=== PATIENT | male | born 1975 | race Caucasian/White ===

== ENCOUNTER 2021-11-01 06:55 | Outpatient (CLI) | payer BC ==
[~2021-11-01] VITALS: Ht 179.1 cm; Wt 93.6 kg
[2021-11-01] VITALS (14 sets, daily range): BP systolic 123–159; BP diastolic 65–91
[2021-11-01 07:44] LABS: CALCIUM 8.7 mg/dL (8.5-10.1); CREATININE 0.7 mg/dL (0.7-1.3); POTASSIUM 4.6 mmol/L (3.5-5.1)
[2021-11-01] MEDS ORDERED: LIDOCAINE 1% Multi-Dose 20 ML VIAL. ONE (07:48)
[2021-11-01 07:52] LABS: PROTHROMBIN TIME PATIENT 12.8 SEC (11.7-14.0)
[2021-11-01 07:58] LABS: HEMATOCRIT 47.4 % (39.0-53.0); HEMOGLOBIN 16.2 g/dL (13.0-17.5); RED BLOOD COUNT 5.15 x10^6/uL (4.30-5.70); RED CELL DISTRIBUTION WIDTH 13.4 % (11.5-14.5); WHITE BLOOD COUNT 9.3 x10^3/uL (4.0-11.0)
[2021-11-01] MEDS ORDERED: IODIXANOL 320 200 ML in NS 200 ML IART ONE (08:00)
[2021-11-01] MEDS ORDERED: MIDAZOLAM HCL/PF 5 MG/5 ML VIAL. ONE (08:07)
[2021-11-01] MEDS ORDERED: HEPARIN for IV BOLUS 10,000 UNIT/10 ML VIAL. ONE (08:07)
[2021-11-01] MEDS ORDERED: fentaNYL PF VIAL 250 MCG/5 ML VIAL ONE (08:07)
[2021-11-01] MEDS ORDERED: VERAPAMIL 5 MG/2 ML VIAL. ONE (08:10)
[2021-11-01] MEDS ORDERED: NITROGLYCERIN 200 MCG/2 ML SYRINGE FOR CATH/VASC LAB. ONE ×2 (08:10→09:19)
[2021-11-01] MEDS ORDERED: HEPARIN for IV BOLUS 10,000 UNIT/10 ML VIAL. IART ONE (08:15)
[2021-11-01] MEDS ORDERED: fentaNYL PF VIAL 250 MCG/5 ML VIAL IV ONE (08:15)
[2021-11-01] MEDS ORDERED: NITROGLYCERIN 200 MCG/2 ML SYRINGE FOR CATH/VASC LAB. IART ONE (08:15)
[2021-11-01] MEDS ORDERED: LIDOCAINE 1% PF 2 ML VIAL. INJ ONE (08:15)
[2021-11-01] MEDS ORDERED: VERAPAMIL 5 MG/2 ML VIAL. IART ONE (08:15)
[2021-11-01] MEDS ORDERED: MIDAZOLAM HCL/PF 5 MG/5 ML VIAL. IV ONE (08:15)
[2021-11-01] MEDS ORDERED: DEXT10CA4 PO (08:24)
[2021-11-01] MEDS ORDERED: DEXT10TA2 PO (08:24)
[2021-11-01] MEDS ORDERED: ROSU40TA22 PO (08:24)
[2021-11-01] MEDS ORDERED: ASPI325T8 PO (08:24)
[2021-11-01] MEDS ORDERED: LISI20TA18 PO (08:24)
[2021-11-01] MEDS ORDERED: LIDOCAINE 1% PF 2 ML VIAL. ONE (08:29)
[2021-11-01] MEDS ORDERED: diphenhydrAMINE 50 MG/ML VIAL ONE (09:18)
[2021-11-01] MEDS ORDERED: diphenhydrAMINE 50 MG/ML VIAL IVP ONE (09:30)
[2021-11-01] MEDS ORDERED: MIDAZOLAM HCL/PF 2 MG/2 ML VIAL. ONE (09:44)
[2021-11-01] MEDS ORDERED: fentaNYL PF VIAL 100 MCG/2 ML VIAL ONE (09:44)
[2021-11-01] MEDS ORDERED: IODIXANOL 320 MG/ML 100 ML VIAL. ONE (10:35)
[2021-11-01] MEDS ORDERED: CLOPIDOGREL BISULFATE 75 MG TABLET ONE (10:52)
--- NOTE | 2021-11-01 10:58 | PDOC ---
MODERATE SEDATION ASSESSMENT RISKS/ALTERNATIVES Risks/Alternatives Risks and alternatives of this type of sedation and procedure discussed with: RISK/ALTERNATIVES: Patient H & P ON CHART H & P H & P on chart and reviewed for co-morbid conditions and appropriate labs. H&P ON CHART: Yes STATUS PREG STATUS ASSESSED: N/A MEDS/ALLERGIES REVIEWED Meds/Allergies Reviewed Medications and Allergies including time and route of recently administered narcotics and sedatives. MEDS/ALLERGIES REVIEWED: Yes ASA RATING ASA RATING: II AIRWAY ASSESSMENT Airway Assessment Airway patency, oral function limitations, presence of caps, crowns, dentures, partials, and ability to extend neck assessed. AIRWAY ASSESSMENT: Yes MALLAMPATI SCORE MALLAMPATI SCORE: II PRE-SEDATION ASSESSMENT PRE-SEDATION ASSESSMENT: Yes COLUMBA BOLANOS MD Nov 01, 2021 10:58
[2021-11-01] MEDS ORDERED: fentaNYL PF VIAL 100 MCG/2 ML VIAL IVP ONE (11:00)
[2021-11-01] MEDS ORDERED: IV 1/2 NORMAL SALINE 1,000 ML IV SCH (11:00)
[2021-11-01] MEDS ORDERED: ACETAMINOPHEN 325 MG TABLET. PO PRN (11:00)
[2021-11-01] MEDS ORDERED: CLOPIDOGREL BISULFATE 75 MG TABLET PO ONE (11:00)
--- NOTE | 2021-11-01 11:28 | CARD ---
MR#: [id number] Date of Study: 11/01/2021 Ordering Physician: COLUMBA BOLANOS, Referring Physician: COLUMBA BOLANOS, Tech: Landy La APPROVED REPORT Patient StatusOUT-PATIENT Dentistry Professor: Landy La Procedure(s) performed: 1. Aortogram with bilateral lower extremity runoff via right transradial ángel florez 2. Successful complex FIRE RANGER/stent placement to chronic total occlusion of the right superficial femora l artery via right anterior tibial (pedal) access. fl time: 35.5 min dose: 167 gycm2 contrast: 178 ml moderate sedation: 150 mins INDICATION FOR PROCEDURE The indication(s) include : Peripheral artery disease with claudication. CASE TECHNIQUE After explaining the risks, benefits, and alternative options, informed consent was obtained from the patient. IV conscious sedation was used throughout procedure with appropriate monitoring and was per formed in the presence of a registered nurse who was an independent trained observer other than the laura adams performing the procedure. During this case, Fluoroscopy and low osmolar contrast were used f or imaging. Specimen(s) Removed: No Estimated Blood loss: 20 cc's. During the procedure heparin was u sed for anticoagulation. PROCEDURE NARRATIVE After explaining the risk, benefits and alternative options, informed consent was obtained from patie nt. Patient was brought to the cardiac Area Development Manager and his right wrist was prepped and draped in the us ual fashion after confirming a positive modified Janusz's test. Arterial access was obtained in the r ight radial artery and a 6 [place]ian sheath was inserted. A 4F R2P PV multivurve catheter was then adva nced under fluoroscopic guidance and with the tip position in the distal descending aorta, aortoiliac angiography was performed. The catheter was advanced into the left external iliac artery and select tara left lower extremity angiography was performed. Subsequently, the catheter was withdrawn, advanc ed into the right external iliac artery and selective right lower extremity angiography was performed . The following findings were noted: FINDINGS 1. No significant stenosis involving the distal descending aorta 2. No significant stenosis involving bilateral common and external iliac arteries 3. No significant stenosis involving bilateral common femoral arteries 4. The superficial femoral arteries bilaterally showed long, flush and chronic total occlusions in t he proximal and mid segments with distal reconstitution via collaterals. The profunda femoris arteri es bilaterally did not show any significant stenosis. 5. The popliteal arteries bilaterally did not show any significant stenosis. 6. There is good three-vessel runoff below the knee bilaterally. INTERVENTION Since patient had flush occlusion of bilateral superficial femoral arteries, a decision was made to i ntervene on the right SFA via right pedal access and stage left SFA intervention in 2 to 3 weeks. Th e right foot and leg were then prepped and draped in the usual fashion. Vascular ultrasound was used to obtain arterial access the right anterior tibial artery and a 6 Liberian sheath was inserted. With the help of backup support from 4 Liberian angled glide catheter, the long chronic total occlusion was crossed successfully with a 0.035 inch Glidewire. Contrast injections were performed to confirm int raluminal location. Attempts to advance 5.0 balloon across the lesion in the proximal to mid segment were unsuccessful. A decision was made to change to a 0.018 inch system. A straight Navicross cath eter was then advanced over the Glidewire, which was then exchanged to a 0.018 inch command guidewire . The long lesion was then dilated with a 5.0 x 200 mm Terumo Crosstella balloon. Since there was diss ection in the proximal portion of the lesion and significant recoil in the distal portion of the lesi on, we decided to treat these areas with stent placement. The proximal segment of the SFA was treate d successfully with a 6.0 x 80 mm Terumo Misago self-expanding stent in the distal recording segment was treated with a 6.0 x 40 mm Terumo Misago self-expanding stent. These were then postdilated with a 5.0 x 60 mm Terumo Metacross balloon. Follow-up angiography showed resolution of the lesion with g ood distal flow. Hemostasis in the right wrist and the right leg were obtained using TR band. Patie nt tolerated the procedure well. There were no immediate complications. Conclusion 1. Severe bilateral lower extremity peripheral artery disease with 100% long and chronic total occlu sions involving the superficial femoral arteries bilaterally 2. Successful complex FIRE RANGER/stents placement to the right superficial femoral artery Recommendations 1. Aspirin 81 mg daily 2. Plavix 75 mg daily for 4 to 6 weeks 3. Plan for staged FIRE RANGER to the left SFA via left pedal access in 2 to 4 weeks 4. Vascular risk factor modification including smoking cessation Signed by : Columba Bolanos, Electronically Approved : 11/01/2021 11:28:12
[2021-11-01] MEDS ORDERED: CLOP75TA PO (12:43)
--- NOTE | 2021-11-01 15:18 | NUR ---
pt A&O x4. having some pain in rt wrist and ankle access sites. both TR bands removed. cleaned sites. dressed with gauze and opsite. no bleeding or swelling noted. armboard reapplied to rt hand/wrist area. d/c instructions given. questions answered. out to vehicle per w/c
[2021-11-02] MEDS ORDERED: CLOPIDOGREL BISULFATE 75 MG TABLET PO SCH (08:00)
[2021-11-02] MEDS ORDERED: ASPIRIN ENTERIC COATED 81 MG TABLET.DR. PO SCH (08:00)
== END 2021-11-01 15:25 | disposition home or self-care (01) ==
LOC: CCL 06:55
PROVIDERS: ATTEND Internal Medicine Cardiovascular Disease
DX: I73.9 Peripheral vascular disease, unspecified (principal); I10 Essential (primary) hypertension; E78.00 Pure hypercholesterolemia, unspecified; F17.210 Nicotine dependence, cigarettes, uncomplicated; Z79.82 Long term (current) use of aspirin; Z79.899 Other long term (current) drug therapy; Z98.890 Other specified postprocedural states; Z72.89 Other problems related to lifestyle; Z88.1 Allergy status to other antibiotic agents; Z88.8 Allergy status to other drugs, medicaments and biological substances
CPT/HCPCS: 36415; 37226; 75625; 75716; 76937; 80048; 85027; 85610; 99152; 99153; C1725; C1769; C1876; C1887; C1894; J1200; J1644; J2250; J3010; J3490; J7050; Q9967; J7030

== ENCOUNTER 2021-11-26 07:02 | Outpatient (CLI) | payer BC ==
[~2021-11-26] VITALS: Ht 180.3 cm; Wt 100.0 kg
[2021-11-26] VITALS (12 sets, daily range): BP systolic 104–146; BP diastolic 61–90
[~2021-11-26 07:02] MED LIST: ASPI325T8 PO; CLOP75TA PO; DEXT10CA4 PO; DEXT10TA2 PO; LISI20TA18 PO; PERFLUTREN PROTEIN-A MICROSPHR 0.22 MG/ML 3 ML VIAL. IV ONE; ROSU40TA22 PO
[2021-11-26 07:49] LABS: HEMATOCRIT 48.2 % (39.0-53.0); HEMOGLOBIN 16.1 g/dL (13.0-17.5); RED BLOOD COUNT 5.3 x10^6/uL (4.30-5.70); RED CELL DISTRIBUTION WIDTH 12.9 % (11.5-14.5); WHITE BLOOD COUNT 11.8 x10^3/uL (4.0-11.0)
[2021-11-26] MEDS ORDERED: LIDOCAINE 1% Multi-Dose 20 ML VIAL. ONE (07:49)
[2021-11-26 07:56] LABS: CALCIUM 9.2 mg/dL (8.5-10.1); CREATININE 0.9 mg/dL (0.7-1.3); GFR 90.8; POTASSIUM 4.7 mmol/L (3.5-5.1)
[2021-11-26] MEDS ORDERED: fentaNYL PF VIAL 100 MCG/2 ML VIAL ONE (08:18)
[2021-11-26] MEDS ORDERED: MIDAZOLAM HCL/PF 5 MG/5 ML VIAL. ONE (08:18)
[2021-11-26] MEDS ORDERED: fentaNYL PF VIAL 250 MCG/5 ML VIAL ONE (08:24)
[2021-11-26] MEDS ORDERED: diphenhydrAMINE 50 MG/ML VIAL ONE (08:25)
[2021-11-26] MEDS ORDERED: HEPARIN for IV BOLUS 10,000 UNIT/10 ML VIAL. ONE (08:27)
[2021-11-26] MEDS ORDERED: NITROGLYCERIN 200 MCG/2 ML SYRINGE FOR CATH/VASC LAB. ONE ×2 (08:29→09:31)
[2021-11-26] MEDS ORDERED: VERAPAMIL 5 MG/2 ML VIAL. ONE (08:30)
[2021-11-26] MEDS ORDERED: IODIXANOL 320 200 ML in NS 200 ML IART ONE (08:30)
[2021-11-26] MEDS ORDERED: diphenhydrAMINE 50 MG/ML VIAL IVP ONE (08:45)
[2021-11-26] MEDS ORDERED: HEPARIN for IV BOLUS 10,000 UNIT/10 ML VIAL. IV ONE (09:45)
[2021-11-26] MEDS ORDERED: fentaNYL PF VIAL 250 MCG/5 ML VIAL IV ONE (09:45)
[2021-11-26] MEDS ORDERED: HEPARIN for IV BOLUS 10,000 UNIT/10 ML VIAL. IART ONE (09:45)
[2021-11-26] MEDS ORDERED: IODIXANOL 320 MG/ML 100 ML VIAL. IART ONE (09:45)
[2021-11-26] MEDS ORDERED: LIDOCAINE 1% Multi-Dose 20 ML VIAL. INJ ONE (09:45)
[2021-11-26] MEDS ORDERED: MIDAZOLAM HCL/PF 5 MG/5 ML VIAL. IV ONE (09:45)
[2021-11-26] MEDS ORDERED: NITROGLYCERIN 200 MCG/2 ML SYRINGE FOR CATH/VASC LAB. IART ONE ×2 (09:45)
[2021-11-26] MEDS ORDERED: VERAPAMIL 5 MG/2 ML VIAL. IART ONE (09:45)
[2021-11-26] MEDS ORDERED: CONTRAST GIVEN. MC PRN (09:45)
--- NOTE | 2021-11-26 10:18 | PDOC ---
MODERATE SEDATION ASSESSMENT RISKS/ALTERNATIVES Risks/Alternatives Risks and alternatives of this type of sedation and procedure discussed with: RISK/ALTERNATIVES: Patient H & P ON CHART H & P H & P on chart and reviewed for co-morbid conditions and appropriate labs. H&P ON CHART: Yes STATUS PREG STATUS ASSESSED: N/A MEDS/ALLERGIES REVIEWED Meds/Allergies Reviewed Medications and Allergies including time and route of recently administered narcotics and sedatives. MEDS/ALLERGIES REVIEWED: Yes ASA RATING ASA RATING: II AIRWAY ASSESSMENT Airway Assessment Airway patency, oral function limitations, presence of caps, crowns, dentures, partials, and ability to extend neck assessed. AIRWAY ASSESSMENT: Yes MALLAMPATI SCORE MALLAMPATI SCORE: II PRE-SEDATION ASSESSMENT PRE-SEDATION ASSESSMENT: Yes COLUMBA BOLANOS MD Nov 26, 2021 10:18
[2021-11-26] MEDS ORDERED: IV 1/2 NORMAL SALINE 1,000 ML IV SCH (10:30)
[2021-11-26] MEDS ORDERED: ACETAMINOPHEN 325 MG TABLET. PO PRN (10:30)
--- NOTE | 2021-11-26 10:38 | CARD ---
MR#: [id number] Date of Study: 11/26/2021 Ordering Physician: COLUMBA BOLANOS, Referring Physician: COLUMBA BOLANOS Tech: Christianne Lr RT(R) APPROVED REPORT Patient StatusCLI Foundry Hand: Christianne Lr RT(R) Procedure(s) performed: Successful complex PIPE LINE GAUGER/stent placement to long and chronic total occlusion in volving left superficial femoral artery via left anterior tibial access. MODERATE SEDATION TIME: 108 MINUTES FLUORO TIME: 18.7 MIN DOSE: 63.8 GYCM2 CONTRAST: 104CC VISI INDICATION FOR PROCEDURE The indication(s) include : 46-year-old male with history of peripheral artery disease with severe cl audication symptoms recently underwent PIPE LINE GAUGER/stent placement to SLEEVE SETTER SAFETY STITCH of right superficial femoral artery via right AT access. He presented today for staged PIPE LINE GAUGER to the chronic total occlusion involving the left superficial femoral artery via left anterior tibial access.. CASE TECHNIQUE After explaining the risks, benefits, and alternative options, informed consent was obtained from the patient. IV conscious sedation was used throughout procedure with appropriate monitoring and was per formed in the presence of a registered nurse who was an independent trained observer other than the laura adams performing the procedure. During this case, Fluoroscopy and low osmolar contrast were used f or imaging. Specimen(s) Removed: No Estimated Blood loss: 15 cc's. PROCEDURE NARRATIVE After explaining the risk, benefits and alternative options, informed consent was obtained from gracee nt. Patient was brought to the cardiac Chemical Dependency Therapist and his right wrist and left lower leg/foot were pre pped and draped in the usual fashion. Vascular ultrasound guidance was used to obtain right radial a rterial access and 6 Cook Islander sheath was inserted. Under vascular ultrasound guidance again, arterial access was obtained in the left anterior tibial artery and 6 [place] Islander sheath inserted. A 6 [place] Islander R2 P PV multicurve catheter was then advanced under fluoroscopy guidance through the right radial arteria l sheath and the tip was positioned in the left external iliac artery. Selective left lower extremit y angiography confirmed the previously described 100% long, flush, chronic total occlusion involving the left superficial femoral artery with reconstitution of the distal segment via collaterals. There was three-vessel runoff distally. A 4 [place] Islander angled glide catheter was then advanced over a 0.035 inch Glidewire through the sheath in the left anterior tibial artery. After several attempts, the long chronic total occlusion was crosse d with a Glidewire. Contrast injections were performed through the angled glide catheter to confirm intraluminal position. The long lesion was then dilated with multiple inflations using 5.5 x 150 mm Freeman Thatcher balloon. Follow-up angiography showed small area of dissection at the distal Of the le kandice. This was successfully treated with a 5.5 x 80 mm Freeman Supera self-expanding stent. Follow-u p angiography showed resolution of the lesion with good results and good distal flow. Patient tolera sincere the procedure well. Hemostasis in the right wrist and left leg were obtained using TR band. Pat ient tolerated the procedure well. There were no immediate complications. Conclusion Successful PIPE LINE GAUGER/stent placement to long chronic total occlusion involving the left superficial femoral artery via left anterior tibial access. Recommendations Vascular risk factor modification including complete smoking cessation and regular exercise regimen Signed by : Columba Bolanos, Electronically Approved : 11/26/2021 10:37:59
--- NOTE | 2021-11-26 13:52 | NUR ---
Instructions provided on site care, sedation. Patient verbalized understanding. present. PIV removed. VS stable. All belongings, including cell phone, wallet; taken with patient. driving patient home. No questions at time of d/c.
== END 2021-11-26 13:40 | disposition home or self-care (01) ==
LOC: CCL 07:02
PROVIDERS: ATTEND Internal Medicine Cardiovascular Disease
DX: I73.9 Peripheral vascular disease, unspecified (principal); I10 Essential (primary) hypertension; E78.00 Pure hypercholesterolemia, unspecified; F17.210 Nicotine dependence, cigarettes, uncomplicated; Z79.82 Long term (current) use of aspirin; Z79.899 Other long term (current) drug therapy; Z98.890 Other specified postprocedural states; Z88.1 Allergy status to other antibiotic agents; Z88.8 Allergy status to other drugs, medicaments and biological substances; Z72.89 Other problems related to lifestyle
CPT/HCPCS: 36415; 37226; 75710; 76937; 80048; 85027; 85610; 99152; 99153; C1725; C1769; C1876; C1887; C1894; J1200; J1644; J2250; J3010; J3490; J7050; Q9967; J7030

== ENCOUNTER → 2022-02-03 | Outpatient (CLI) | payer BC ==
[2021-11-26 13:30] VITALS: BP 132/76
[~2022-02-03] MED LIST changes: -PERFLUTREN PROTEIN-A MICROSPHR 0.22 MG/ML 3 ML VIAL. IV ONE
--- NOTE | 2022-02-03 18:04 | CARD ---
MR#: [id number] Date of Study: 02/03/2022 Ordering Physician: COLUMBA BOLANOS, Referring Physician: Roseline VALLE: Chuck Mendes [facility] APPROVED REPORT EXAM: Two-dimensional and M-mode echocardiogram with Doppler and color Doppler. Other Information Quality : FairHR: 98bpm Rhythm : NSR INDICATION Hypertension/HCVD RISK FACTORS Hypertension Obesity Smoking Peripheral vascular disease 2D DIMENSIONS Left Atrium(2D)3.8 (1.6-4.0cm)IVSd1.2 (0.7-1.1cm) Aortic Root(2D)3.0 (2.0-3.7cm)LVDd4.4 (3.9-5.9cm) PWd1.2 (0.7-1.1cm)LVDs2.3 (2.5-4.0cm) FS (%) 47.5 %SV69.7 ml Aortic Valve AoV Peak Cheo.154.0cm/sAoV VTI26.9cm AO Peak GR.9.5mmHgLVOT Peak Cheo.116.8cm/s LVOT VTI 20.02cmAO Mean GR.5mmHg Mitral Valve MV E Uhdeypqb91.2cm/sMV DECEL [id number] MV A Cjmrlito18.2cm/sMV [id number] E/A Ratio0.7MVA (PHT)1.84cm2 TDI E/Lateral E'6.2E/Medial E'5.8 Pulmonary Valve PV Peak Bblookke756.0cm/sPV Peak Grad.7mmHg Tricuspid Valve TR P. Rmxvpwsh607yw/sTR Peak Gr.19mmHg Pulmonary Vein S1 Gcsajbsw85.8cm/sD2 Ggukcamy54.5cm/s LEFT VENTRICLE The left ventricle is normal size. There is borderline concentric left ventricular hypertrophy. The l eft ventricular systolic function is normal. Left ventricular ejection fraction is 55 to 60%. There i s normal LV segmental wall motion. Transmitral Doppler flow pattern is Grade I-abnormal relaxation pa ttern. No left ventricle thrombus noted on this study. There is no ventricular septal defect visualiz ed. There is no left ventricular aneurysm. There is no mass noted in the left ventricle. RIGHT VENTRICLE The right ventricle is normal size. There is normal right ventricular wall thickness. The right ventr icular systolic function is normal. ATRIA The left atrium size is normal. The right atrium size is normal. The interatrial septum is intact wit h no evidence for an atrial septal defect or patent foramen ovale as noted on 2-D or Doppler imaging. AORTIC VALVE The aortic valve is normal in structure and function. Doppler and Color Flow revealed no significant aortic regurgitation. There is no significant aortic valvular stenosis. There is no aortic valvular v egetation. MITRAL VALVE The mitral valve is normal in structure and function. There is no evidence of mitral valve prolapse. There is no mitral valve stenosis. Doppler and Color-flow revealed trace mitral regurgitation. TRICUSPID VALVE The tricuspid valve is normal in structure and function. Doppler and Color Flow revealed trace tricus pid regurgitation. The PA pressure was estimated at 24 mmHg. There is no tricuspid valve prolapse or vegetation. There is no tricuspid valve stenosis. PULMONIC VALVE The pulmonary valve is normal in structure and function. Doppler and Color Flow revealed no pulmonic valvular regurgitation. There is no pulmonic valvular stenosis. GREAT VESSELS The aortic root is normal in size. The ascending aorta is normal in size. The pulmonary artery is nor mal. The IVC is normal in size and collapses >50% with inspiration. PERICARDIAL EFFUSION There is no pleural effusion. There is no evidence of significant pericardial effusion. Critical Notification Critical Value: No <Conclusion> The left ventricle is normal size. The left ventricular systolic function is normal. Left ventricular ejection fraction is 55 to 60%. There is borderline concentric left ventricular hypertrophy. Doppler and Color Flow revealed no significant aortic regurgitation. There is no significant aortic valvular stenosis. Doppler and Color-flow revealed trace mitral regurgitation. Doppler and Color Flow revealed trace tricuspid regurgitation. The PA pressure was estimated at 24 mmHg. Signed by : Donald Wilson MD Electronically Approved : 02/03/2022 18:04:10
== END ==
LOC: ECHO 07:40
PROVIDERS: ATTEND Internal Medicine Cardiovascular Disease
DX: I10 Essential (primary) hypertension (principal)
CPT/HCPCS: 93306; C8929